=== PATIENT | male | born 1995 | race Caucasian/White ===

== ENCOUNTER 2024-07-12 11:25 | Observation (INO) | payer MEDICAID, SELFPAY ==
[2024-07-12 11:28] VITALS: BP 155/111; PULSE 85; RESP 16; TEMP 36.5; O2SAT 99; BMI 41.9
--- NOTE | 2024-07-12 11:49 | EX.ED.SAOD ---
HPI History of Present Illness Chief Complaint: Substance Abuse Informant: patient Onset/Context/Timing Onset: Month(s) Narrative Narrative: 28-year-old male no seen past medical history other than fentanyl drug abuse. Said he went to detox years ago nothing recently. He is requesting detox today. Denies any IV drug abuse. Says he snorts the fentanyl. Denies alcohol abuse. Last use was yesterday around 8 PM. Prior similar symptoms: Yes Recent Illness/Hospitalization: No PFSH PFSH Medical History no medical history Home Medications ?Medication ?Instructions ?Recorded ?Last Taken ?Type NK 07/12/24 Unknown History Allergy/AdvReac Type Severity Reaction Status Date / Time hydrocodone Allergy Intermediate Hives Verified 07/12/24 11:27 Social History Smoking Status: Current every day smoker tobacco type: cigarettes ROS ROS ED ROS Narrative Denies recent illness. Constitutional Constitutional ED: Denies chills or fever(s) Eyes Eyes: Denies blurry vision ENT ENT ED: Denies ear pain Cardiovascular Cardiovascular: Denies chest pain Respiratory/Chest Respiratory/Chest: Denies cough or dyspnea Gastrointestinal Gastrointestinal: Denies abdominal pain Genitourinary Genitourinary ED: Denies dysuria Musculoskeletal Musculoskeletal: Denies arthralgias Integumentary Denies abscess Neurologic Neurologic: Denies headache(s) Psychiatric Psychiatric: Denies anxiety Endocrine Endocrinology: Denies cold intolerance Hematologic/Lymphatic Hematologic/Lymphatic: Denies easy bleeding Allergic/Immunologic Allergic/Immunologic ED: Denies mouth swelling or tongue swelling EXAM Physical Exam Narrative Exam Narrative: Well-appearing 19-year-old male vital signs stable afebrile. Initial blood pressure elevated 155/111. H EENT exam unremarkable. Neck nontender. No lymphadenopathy. Lungs clear to auscultation bilaterally. Heart regular rhythm no murmur. Rate about 85. Chest wall ribs nontender. Abdomen soft nontender. Moving all 4 extremities. Nontender no obvious edema. Normal strength. Normal range of motion. No track schneider. Back nontender. Neurologically is awake alert no focal motor deficits. Multiple tattoos. No rashes. Const Vital Signs: 07/12/24 11:28 Temperature 97.7 F L Temperature Source Oral Pulse Rate 85 Respiratory Rate 16 Blood Pressure 155/111 H Blood Pressure Mean 125 Pulse Ox 99 Oxygen Delivery Method Room Air Positive well nourished and well developed; Negative for cachectic, contractures or unkempt General Appearance ED: well developed and NAD; Negative for unkempt, cachectic, contractures or pallor Nutritional Appearance: Negative for cachectic HEENT Reports moist mucous membranes atraumatic Eyes PERRL and EOMs intact bilaterally General Eye ED: Negative for pale conjunctiva Neck no lymphadenopathy, supple and no JVD Thyroid: Negative for tender Lymph Lymphatic: no lymphadenopathy noted Chest Wall inspection of chest normal and palpation of chest normal Resp normal respiratory effort and clear to auscultation bilaterally Effort and Inspection: Negative for retractions Auscultation: Negative for rales, rhonchi, wheezes or diminished lung sounds Cardio regular rate, regular rhythm, S1 normal heart sound, S2 normal heart sound and no murmurs Rate: Negative for bradycardia or tachycardic Rhythm: Negative for abnormal rhythm GI soft to palpation, non-tender, non-distended and no masses Palpation: Negative for tender Back/Spine no CVA tenderness General Back: Negative for CVA tenderness Cervical Spine: Negative for cervical spine tenderness Thoracic Spine / Upper Back: Negative for thoracic spinal tenderness Lumbar Spine / Lower Back: Negative for lumbar spinal tenderness Coccyx: Negative for swelling Extremity Extremity Narrative: No track schneider. General Extremety ED: Negative for edema or tenderness General Extremity: Negative for edema Neuro oriented x3 and CN's II-XII intact bilaterally Sensorium / Orientation: alert, oriented to person, oriented to place and oriented to time; Negative for confused, lethargic or stuporous Speech: speech normal Motor Exam: strength 5/5 throughout Psych mental status grossly normal and thought process normal Appearance: Negative for unkempt Skin General Skin Exam: Negative for jaundice or pallor Rashes: no rashes MDM MDM MDM Narrative Medical decision making narrative: 28-year-old male requesting detox for fentanyl abuse. Exam benign. Hospitalist on page for admission for detox. Discharge Plan Triage Chief Complaint: Substance Abuse ED Provider: Jama Waters Dx/Rx/DC Orders Clinical Impression: Drug abuse Prescriptions: No Action NK Primary Care Provider: Tete Sosa,Out of Referrals: Tete Sosa,Out of [Primary Care Provider] - Print Language: Spanish Disposition Disposition: [facility]
[2024-07-12 11:59] LABS: Absolute Lymphocyte Count 3.07 X10^3/uL (0.83-4.51); Absolute Neutrophil Count 10.4 X10^3/uL (2.0-7.7); Basophil# 0.06 X10^3/uL; Basophil% 0.4 % (0-1); Eosinophil# 0.15 X10^3/uL; Hematocrit 49.1 % (40-54); Hemoglobin 16.6 g/dL (13.0-16.5); Lymphocyte # 3.07 X10^3/ul (0.83-4.51); Lymphocyte % 21.3 % (19-41); Mean Corp Hgb Conc 33.8 g/dL (32-36); Mean Corpuscular Hgb 30.2 pg (27.0-32.0); Mean Corpuscular Volume 89.3 fL (80-94); Mean Platelet Vol. 11.5 fl (6.2-12.0); Monocyte% 4.9 % (0-10); NRBC Flagged by Analyzer 0 % (0-5); Neutrophil # 10.37 X10^3/uL (2.7-7.7); Platelet Count 260 K/mm3 (150-450); RBC Distribution Width CV 11.9 % (11.6-14.6); RBC Distribution Width SD 39.2 fl (35.1-43.9); White Blood Count 14.4 K/mm3 (4.4-11.0)
--- NOTE | 2024-07-12 12:00 | PCM.HP.STD ---
HPI - General General Date of Admission: 07/12/24 Date of Service: 07/12/24 Chief Complaint: Opiate detox HPI Narrative SANTO LEACH, is a 28 M who presented to the emergency department at [facility] on 07/12/2020 for requesting detox from opiates. He states he has been using intranasal fentanyl for about 3 years now. He has gone through detox on his own at home and felt very poorly while doing so and at this point he feels like he is probably ready to go to an inpatient rehab program. He states he is currently using at least a gram 2 g and a half daily. His last use was last evening at which time he was about a quarter of a gram to avoid withdrawal before coming in. He has cut back over the last 2 days. He denies any other concomitant substance abuse but does admit to smoking cigarettes. He has been in detention due to selling substances as well. Vital signs on presentation showed temperature of 97.7, heart rate 85, initial blood pressure was 155/111 with a repeat of 138/74, respiratory 16 oxygen saturations are 99% room air. CBC shows a mild leukocytosis with a white count of 14.4 with only minimal left shift and an elevated hemoglobin at 16.6. Platelet count is normal. Chemistry panel is completely unremarkable. Toxicology screen and alcohol level are pending at the time of admission. [facility] Medical History Morbid obesity with BMI of 40.0-44.9, adult Tobacco abuse Medical History no medical history Home Medications ?Medication ?Instructions ?Recorded ?Last Taken ?Type NK 07/12/24 Unknown History Allergy/AdvReac Type Severity Reaction Status Date / Time hydrocodone Allergy Intermediate Hives Verified 07/12/24 11:27 no significant family history no surgical history Social History (Updated 07/12/24 @ 12:[address] Mary Eagle DO) Smoking Status: Current every day smoker tobacco type: cigarettes alcohol intake: current substance use type: opiates and other details: Fentanyl ROS Constitutional Constitutional: Reports malaise; Denies anorexia, change in weight, chills, fatigue, fever(s), night sweats, weakness or other Eyes Eyes: Denies blurry vision, change in eye color, change in vision, discharge from eye(s), double vision, erythema, eye pain, loss of vision or other ENT HEENT: Reports other Details: Rhinorrhea ; Denies abnormal hearing, dysphagia, ear pain, epistaxis, headache(s), hearing loss, nasal congestion, nasal discharge, post nasal drip, sinus pressure or sore throat Cardiovascular Cardiovascular: Denies chest pain, claudication, dyspnea on exertion, edema, lightheadedness, orthopnea, palpitations, paroxysmal nocturnal dyspnea, rapid heart rate, syncope or other Respiratory/Chest Respiratory/Chest: Denies cough, dyspnea, excessive phlegm production, hemoptysis, productive cough, shortness of breath at rest, shortness of breath with exertion, wheezing or other Gastrointestinal Gastrointestinal: Reports diarrhea and nausea; Denies abdominal pain, coffee ground emesis, constipation, dyspepsia, hematemesis, hematochezia, loose stools, melena, vomiting or other Genitourinary Genitourinary: Denies burning urination, difficulty urinating, dysuria, hematuria, nocturia, urinary frequency, urinary hesitancy, urinary incontinence, urinary urgency or other Musculoskeletal Musculoskeletal: Reports myalgias; Denies arthralgias, back pain, joint pain, joint stiffness, joint swelling, neck pain or other Neurologic Neurologic: Denies abnormal gait, abnormal speech, confusion, disequilibrium, dizziness, focal weakness, headache(s), numbness, paresthesias, seizure-like activity, seizures, syncope, tingling, tremor(s) or other Psychiatric Psychiatric: Reports anxiety; Denies depression, homicidal ideation, suicidal ideation or other Endocrine Endocrinology: Denies change in body appearance, cold intolerance, excessive sweating, heat intolerance, polydipsia, polyuria or other Hematologic/Lymphatic Hematologic/Lymphatic: Denies anemia, easy bleeding, easy bruising, lymphadenopathy or other Allergic/Immunologic Allergic/Immunologic: Denies rhinitis, hives, eczemia, asthma or other Vital Signs Vital Signs Vital Signs: 07/12/24 11:28 Temperature 97.7 F L Temperature Source Oral Pulse Rate 85 Respiratory Rate 16 Blood Pressure 155/111 H Blood Pressure Mean 125 Pulse Ox 99 Oxygen Delivery Method Room Air Weight Weight: 144.106 kg Body Mass Index (BMI) 41.9 Physical Exam Const alert, oriented x3, no apparent distress and well nourished Constitutional Narrative: Morbidly obese, white male, sitting up in bed, appears comfortable, nontoxic General Appearance: cooperative HEENT normocephalic, head/scalp atraumatic, hearing grossly normal bilaterally and moist oral mucous membranes HEENT Narrative: Mallampati 3, dentition is good, no thrush Resp normal respiratory effort, no retractions, no use of accessory muscles and clear to auscultation bilaterally Auscultation: Negative for rales, rhonchi or wheezes Cardio regular rate, regular rhythm, S1 normal heart sound, S2 normal heart sound, no murmurs, no rub, no gallops and no clicks GI normal to inspection, nondistended, normoactive bowel sounds, soft to palpation and non-tender Extremity no clubbing, cyanosis or edema Extremity Narrative: Pedal pulses are 2+ Neuro oriented x3, moves all extremities and no focal motor deficits Psych affect normal Psych Narrative: Very pleasant, appreciative, interacts appropriately Mood & Affect: anxious Results Lab / Micro Data 07/12/24 11:35 07/12/24 11:35 Labs: Laboratory Results - last 24 hr 07/12/24 11:33: Ur Drug Screen Comment 07/12/24 11:35: WBC 14.4 H, RBC 5.50, Hgb 16.6 H, Hct 49.1, MCV 89.3, MCH 30.2, MCHC 33.8, RDW Std Deviation 39.2, RDW Coeff of Seven 11.9, Plt Count 260, MPV 11.5, Immature Gran % (Auto) 0.400, Neut % (Auto) 72.0 H, Lymph % (Auto) 21.3, [place] % (Auto) 4.9, Eos % (Auto) 1.0, Baso % (Auto) 0.4, Absolute Neuts (auto) 10.4 H, Absolute Lymphs (auto) 3.07, Nucleated RBC % 0 Assessment & Plan Assessment/Plan (1) Drug abuse: (2) Opiate abuse, continuous: (3) Elevated blood pressure reading: PLAN: Plan Opiate abuse with pending withdrawal -Admit to MedSurg -Buprenorphine taper per COWS protocol -Supportive medication for withdrawal symptoms -Reports only intranasal use with no history of IVDU -180 consultation for assistance with discharge planning--> on admission patient indicating that he may want to proceed with inpatient rehab at discharge Elevated blood pressure -Highly suspect this may be related to his withdrawal symptoms -Will continue to monitor -As needed hydralazine available for systolic pressure greater than 150 Tobacco abuse -Recommend cessation -Nicotine patch available DVT prophylaxis -Lovenox twice daily CODE STATUS Full code Charges/Coding Visit Charges Inpatient E&M: 40233 Init Hosp L2
[2024-07-12 12:19] LABS: ALB/GLOB Ratio 1.2 RATIO (0.9-2.4); AST(SGOT) 31 U/L (15-37); Alanine Aminotransfer ALT/SGPT 49 U/L (16-61); Albumin, Serum 4.4 g/dL (3.2-5.0); Alkaline Phosphatase 104 U/L (45-117); Anion Gap 7 (5-15); BUN 10 mg/dL (7-18); BUN/Creat Ratio 12.1 RATIO (10-20); Calcium,Total 9.7 mg/dL (8.5-10.1); Chloride 108 mmol/L (98-107); Creatinine, Serum 0.83 mg/dL (0.70-1.30); EST Glomerular Filtration Rate 116 mL/min (>60); Est Glom Filt Rate - Afr Amer 141 mL/min (>60); Estimated Creatinine Clearance 196.11 ml/min; Globulin 3.8 g/dL (2.2-4.2); Glucose 111 mg/dL (74-106); Potassium 3.6 mmol/L (3.5-5.1); Protein, Total 8.2 g/dL (6.4-8.2); Sodium Level 140 mmol/L (136-145)
[2024-07-12 12:20] VITALS: BP 138/74
[2024-07-12 12:40] LABS: Alcohol, Blood (Medical)-Serum < 3.0 mg/dL
[2024-07-12 12:43] VITALS: BP 128/69; PULSE 81; RESP 16; TEMP 36.5; O2SAT 99
[2024-07-12 12:44] VITALS: BMI 40.2
[2024-07-12 12:57] VITALS: BP 113/91; PULSE 72; RESP 16; TEMP 36.1; O2SAT 97
[2024-07-12 13:01] LABS: Amphetamine Urine VISTA NEGATIVE (<1000 ng/mL); Barbiturate Urine VISTA NEGATIVE (< 200 ng/mL); Benzodiazepine Urine VISTA POSITIVE (< 200 ng/mL); Cocaine Urine VISTA NEGATIVE (< 300 ng/mL); Ecstacy Urine VISTA POSITIVE (< 500 ng/mL); Methadone Urine VISTA NEGATIVE (< 300 ng/mL); PCP Urine VISTA NEGATIVE (< 25 ng/mL); THC Urine VISTA NEGATIVE (< 50 ng/mL); Vista UDS pH Range 6
--- NOTE | 2024-07-12 13:30 | ADDICTION ---
This caption writer met with PT to conduct ASAM, MSE, DUDIT assessments and to plan for d/c. PT A+Ox4 and participated actively. All assessments completed and placed in PT's chart. PT plans to f/u with outpatient services at [facility] in [facility]. He has been scheduled for an appointment with [facility] on Monday 07/16 at 9:30AM.
[2024-07-12] MEDS: Buprenorphine HCl 2 MG TAB.SUBL SL ×2 (15:15→23:01)
[2024-07-12 15:36] VITALS: BP 147/91; PULSE 84; RESP 16; TEMP 36.6; O2SAT 96
[2024-07-12] MEDS: hydrOXYzine PAM 25 MG Capsule 50 MG PO (17:20)
[2024-07-12] MEDS: Ondansetron 8 MG Tablet PO (17:21)
[2024-07-12] MEDS: Gabapentin 300 MG Capsule PO (17:21)
[2024-07-12] MEDS: Methocarbamol 750 MG Tablet PO (23:06)
[2024-07-12 23:09] VITALS: BP 154/92; PULSE 79; RESP 16; TEMP 36.6; O2SAT 97
[2024-07-13 06:39] VITALS: BP 141/90; PULSE 74; RESP 16; TEMP 36.7; O2SAT 97
[2024-07-13] MEDS: Buprenorphine HCl 2 MG TAB.SUBL SL ×3 (06:40→22:43)
[2024-07-13 08:31] VITALS: BP 152/107; PULSE 65; RESP 20; TEMP 36.7; O2SAT 96
[2024-07-13] MEDS: Acetaminophen 325 MG Tablet 650 MG PO (08:50)
[2024-07-13] MEDS: cloNIDine HCl 0.1 MG Tablet PO (08:50)
[2024-07-13] MEDS: Enoxaparin 40 MG/0.4 ML Syringe SC (08:50)
[2024-07-13 10:59] VITALS: BP 132/81; PULSE 68
[2024-07-13] MEDS: Dicyclomine 10 MG Capsule 20 MG PO (12:12)
--- NOTE | 2024-07-13 13:25 | PCM.PN.HOSP ---
Reason for Visit Reason for Visit: Alcohol detox Subjective Subjective No issues overnight. Patient is currently sleeping and appears comfortable. Objective Data Objective Data Vital Signs: Vital Signs Temp Pulse Resp BP Pulse Ox O2 Del Method 98.1 F 68 20 H 132/81 H 96 Room Air 07/13/24 08:31 07/13/24 10:59 07/13/24 08:31 07/13/24 10:59 07/13/24 08:31 07/13/24 10:59 Oxygen Delivery Method Room Air Weight: 138.346 kg Body Mass Index (BMI) 40.2 Intake & Output: Intake and Output for Last 24 Hours 07/11/24 07/12/24 07/13/24 23:59 23:59 23:59 Intake Total 350 / 350 500 / 500 Balance 350 / 350 500 / 500 Lab / Micro Data 07/12/24 11:35 07/12/24 11:35 Physical Exam Const no apparent distress and well nourished; Negative for average body habitus Constitutional Narrative: Sleeping, middle-aged, white male, lying in bed, morbidly obese, appears comfortable and nontoxic Cardio regular rate, regular rhythm, S1 normal heart sound, S2 normal heart sound, no murmurs, no rub, no gallops and no clicks GI normal to inspection, nondistended, normoactive bowel sounds and soft to palpation Assessment & Plan Assessment/Plan (1) Drug abuse: (2) Opiate abuse, continuous: (3) Elevated blood pressure reading: PLAN: Plan Opiate abuse with pending withdrawal -Admit to MedSur -Continue buprenorphine taper per COWS protocol -Continue supportive medication for withdrawal symptoms -Reports only intranasal use with no history of IVDU -180 consultation for assistance with discharge planning--> on admission patient indicating that he may want to proceed with inpatient rehab at discharge Elevated blood pressure -Highly suspect this may be related to his withdrawal symptoms -Improved some since admission and treatment for his withdrawal but will need to continue to monitor -Will continue to monitor -As needed hydralazine available for systolic pressure greater than 150 Tobacco abuse -Recommend cessation -Continue nicotine patch DVT prophylaxis -Lovenox twice daily as patient has been lying in bed not getting up much CODE STATUS Full code Charges/Coding Visit Charges Inpatient E&M: [address] [facility] Hosp L1
[2024-07-13 14:30] VITALS: BP 139/87; PULSE 63; RESP 16; TEMP 36.8; O2SAT 96
[2024-07-13] MEDS: Ondansetron 8 MG Tablet PO (18:23)
[2024-07-13] MEDS: Methocarbamol 750 MG Tablet PO (18:31)
[2024-07-13] MEDS: traZODone 100 MG Tablet PO (19:53)
[2024-07-13 20:01] VITALS: BP 153/90; PULSE 68; RESP 16; TEMP 36.5; O2SAT 97
[2024-07-14] MEDS: Buprenorphine HCl 2 MG TAB.SUBL SL ×2 (06:16→15:01)
[2024-07-14 06:19] VITALS: BP 146/91; PULSE 67; RESP 16; TEMP 36.5; O2SAT 96
[2024-07-14 10:26] VITALS: BP 137/80; PULSE 64; RESP 16; TEMP 36.6; O2SAT 98
--- NOTE | 2024-07-14 12:34 | PN_ITS ---
Subjective Subjective Patient seen and examined. He complains of some restless legs due to opioid withdrawal. However he has no other symptoms. Review of systems otherwise negative. He has remained hemodynamically stable. Objective Data Objective Data Vital Signs: Vital Signs Temp Pulse Resp BP Pulse Ox O2 Del Method 97.8 F 64 16 137/80 H 98 Room Air 07/14/24 10:26 07/14/24 10:26 07/14/24 10:26 07/14/24 10:07/14/24 10:07/14/24 10:26 Oxygen Delivery Method Room Air Weight: 305 lb Body Mass Index (BMI) 40.2 Intake & Output: Intake and Output for Last 24 Hours 07/12/24 07/13/24 07/14/24 23:59 23:59 23:59 Intake Total 350 / 350 800 / 800 300 / 300 Balance 350 / 350 800 / 800 300 / 300 Lab / Micro Data 07/12/24 11:35 07/12/24 11:35 Physical Exam Const alert, oriented x3 and no apparent distress General Appearance: cooperative and well developed HEENT normocephalic, head/scalp atraumatic and moist oral mucous membranes Eyes PERRL and EOMs intact bilaterally Neck no lymphadenopathy and supple Lymph Lymphatic: no lymphadenopathy noted and no lymphedema noted Resp normal respiratory effort, normal air movement and clear to auscultation bilaterally Cardio regular rate, regular rhythm, S1 normal heart sound, S2 normal heart sound and no murmurs GI normal to inspection, nondistended, normoactive bowel sounds, soft to palpation, non-tender and non-distended Extremity normal capillary refill, no clubbing, cyanosis or edema and no calf tenderness General Extremity: no tenderness to palpation of joints or extremities Skin General Skin Exam: no breakdown Neuro CN's II-XII intact bilaterally and no focal motor deficits Motor Exam: strength 5/5 throughout Psych thought process normal, cooperative and affect normal Appearance: appropriate Assessment & Plan Assessment/Plan (1) Opiate abuse, continuous: PLAN: Plan #Acute opioid withdrawal * On opioid withdrawal protocol with buprenorphine. Monitor COWS score * Adjunctive meds for symptomatic relief. #Elevated blood pressure: * Does not usually take medications at home. * Does state that this is likely due to his withdrawal symptoms. * On IV hydralazine as needed. * If BP remains elevated will start all home meds. * BP 137/80 this morning. #Nicotine dependence, counseled to quit. Nicotine patch 21 mg daily. DVT prophylaxis: Lovenox twice daily Charges/Coding Visit Charges Inpatient E&M: 84645 Subs Hosp L2
[2024-07-14 14:52] VITALS: BP 137/93; PULSE 62; RESP 16; TEMP 36.8; O2SAT 97
[2024-07-14] MEDS: traZODone 100 MG Tablet PO (19:44)
[2024-07-14] MEDS: Ondansetron 8 MG Tablet PO (19:44)
[2024-07-14 22:43] VITALS: BP 156/65; PULSE 66; RESP 16; TEMP 36.5; O2SAT 98
[2024-07-15] MEDS: Buprenorphine HCl 2 MG TAB.SUBL SL (02:40)
[2024-07-15 02:41] VITALS: BP 147/97; PULSE 62; RESP 16; TEMP 36.5; O2SAT 97
[2024-07-15] MEDS: Gabapentin 300 MG Capsule PO (08:47)
--- NOTE | 2024-07-15 09:55 | DS.PCM_ITS ---
Providers Date of Admission: 07/12/24 Date of Discharge: 07/15/24 Primary Care Physician: No Primary Care Phys Reason For Visit: DETOX Diagnosis Discharge Diagnosis (1) Opiate abuse, continuous: Status: Acute Code(s): F11.10 - Opioid abuse, uncomplicated Plan #Acute opioid withdrawal * On opioid withdrawal protocol with buprenorphine. Monitor COWS score * Adjunctive meds for symptomatic relief. #Elevated blood pressure: * Does not usually take medications at home. * Does state that this is likely due to his withdrawal symptoms. * On IV hydralazine as needed. * If BP remains elevated will start all home meds. * BP 137/80 this morning. #Nicotine dependence, counseled to quit. Nicotine patch 21 mg daily. DVT prophylaxis: Lovenox twice daily Medications at Discharge Home Medications NK 07/12/24 Hospital Course Operations None Procedures None Summary of Care Provided Minutes Spent on Discharge: 45 Hospital Course: Patient is a 28-year-old male with past medical history as outlined was admitted through the ED on 07/12/2024 request for detox from opioids. He had been using intranasal fentanyl for about 3 years prior to admission and was using at least a gram to 1.5 g daily. His last use was the evening before admission. He had gone through detox at home on his own previously and said he felt very poorly so he decided to come into the hospital at this time. He admitted to smoking but denied any other symptoms. Review systems otherwise negative. He was admitted and managed for opioid use with pending withdrawal. Urine tox was positive for MDMA and benzodiazepines he was started on buprenorphine withdrawal protocol. His blood pressure was elevated on admission but this was thought to be due to the withdrawal symptoms. His symptoms started to improve and his BP improved. He completed the three day detox process. He remained stable and was discharged home on 07/15/2024. HE is to follow up with his PCP and follow up with [facility] rehab facility. Patient seen and examined prior to discharge. He had no active complaints and had an uneventful night. Labs and vitals reviewed. Home meds reviewed and reconciled. Physical Exam Const alert, oriented x3, no apparent distress and well nourished General Appearance: cooperative, comfortable, well kempt and well developed Exam Limitations: no limitations HEENT normocephalic, head/scalp atraumatic, hearing grossly normal bilaterally and moist oral mucous membranes Mouth: oral and palatal mucosa normal Eyes PERRL and EOMs intact bilaterally Neck no lymphadenopathy and supple Lymph Lymphatic: no lymphadenopathy noted and no lymphedema noted Resp normal respiratory effort, normal air movement, no retractions, no use of accessory muscles and clear to auscultation bilaterally Auscultation: Negative for rales, rhonchi or wheezes Cardio regular rate, regular rhythm, S1 normal heart sound, S2 normal heart sound, no murmurs, no rub, no gallops and no clicks GI normal to inspection, nondistended, normoactive bowel sounds, soft to palpation, non-tender and non-distended Extremity normal capillary refill, no clubbing, cyanosis or edema and no calf tenderness Extremity Narrative: Pedal pulses are 2+ General Extremity: no tenderness to palpation of joints or extremities Skin General Skin Exam: no breakdown Neuro oriented x3, CN's II-XII intact bilaterally, moves all extremities and no focal motor deficits Motor Exam: strength 5/5 throughout Psych thought process normal, cooperative and affect normal Appearance: appropriate Weight / BMI Weight Weight: 305 lb Body Mass Index (BMI) 40.2 ABG / Lab / Microbiology Data 07/12/24 11:35 07/12/24 11:35 D/C Instructions Discharge Diet: No restrictions Discharge Activity: Return to Normal Activity Weight Bearing Status: Weight bearing as tolerated Call your doctor if you observe: Fever of 101 or Higher, Shortness of breath and Dizziness Meaningful Use Info Meaningful Use Meaningful Use Diagnoses (Choose all that apply): None applicable Ischemic Stroke Statin Dosing Therapy Reference: STATIN DOSE THERAPY REFERENCE: * Patients > 75 years receive moderate or high dose statin therapy. * Patients 75 years or YOUNGER should receive HIGH intensity statin dose unless contraindicated. You will be required to document reason for non-treatment if statin daily dose does not meet guidelines. HIGH DOSE STATIN THERAPY DAILY Atorvastatin > than or = to 40 mg Rosuvastatin > than or = to 20 mg Amlodipine + Atorvastatin > than or = to 2.5/40 mg Ezetimibe + Simvastatin 10/80 mg Simvastatin 80mg Discharge Plan Admission Admit Date/Time: 07/12/24 11:54 Primary Reason for Your Visit: acute opioid withdrawal Attending Provider: Kim Underwood Primary Care Provider: Care Physician,No Primary Consulting Providers: Mary Eagle Instructions Patient Instructions: ED Opiate Abuse, ED Opioid Withdrawal Discharge Orders/Prescriptions Prescriptions: No Action NK Referrals / Follow Up: Care Physician,No Primary [Primary Care Provider] - Within 1 Week [facility] Doctor,Out of [Non-Staff] - Frantz Oleary MD [Med Staff - Active Staff] - Within 1 Month Disposition Disposition (needs filled in before D/C Order can be placed): Home, Self Care Charges/Coding Visit Charges Inpatient E&M: 33256 Disch Hosp >30min
--- NOTE | 2024-07-15 10:33 | DCINST_ITS ---
Discharge Instructions Diet Discharge Diet: No restrictions Activity Weight Bearing Status: Weight bearing as tolerated Dressing / Incision Call your doctor if you observe: Fever of 101 or Higher, Shortness of breath and Dizziness Follow Up Care Test Results: Test results from this visit will be discussed in further detail at your follow- up appointment, if applicable. Discharge Plan Admission Admit Date/Time: 07/12/24 11:54 Primary Reason for Your Visit: acute opioid withdrawal Attending Provider: Kim Underwood Primary Care Provider: Care Physician,No Primary Consulting Providers: Mary Eagle Instructions Patient Instructions: ED Opiate Abuse, ED Opioid Withdrawal Discharge Orders/Prescriptions Prescriptions: No Action NK Referrals / Follow Up: Frantz Oleary MD [Med Staff - Active Staff] - Within 1 Month Care Physician,No Primary [Primary Care Provider] - Within 1 Week [facility] Doctor,Out of [Non-Staff] - Disposition Disposition (needs filled in before D/C Order can be placed): Home, Self Care
== END 2024-07-15 11:25 | disposition home or self-care (01) ==
LOC: ED 12:17 → MS3 15:55
PROVIDERS: Admitting Provider Internal Medicine; Emergency Provider Emergency Medicine; Visit Provider Student in an Organized Health Care Education/Training Program
DX: F11.13 Opioid abuse with withdrawal (principal); E66.01 Morbid (severe) obesity due to excess calories; Z68.41 Body mass index [BMI] 40.0-44.9, adult; R03.0 Elevated blood-pressure reading, without diagnosis of hypertension; F17.210 Nicotine dependence, cigarettes, uncomplicated
CPT/HCPCS: 97802; 80053; 80307; 82077; 85025; 94668; 96372; 99283; H0012